=== PATIENT | female | born 1995 | race Caucasian/White ===

== ENCOUNTER 2023-12-31 14:08 | Outpatient (RCR) | payer BC, SELFPAY ==
[2024-01-02] MEDS: RHO(D) IMMUNE GLOBULIN 300 MCG/2 ML SYRINGE IM (17:50)
== END 2024-03-30 23:59 | disposition home or self-care (01) ==
LOC: ANHLAB 14:08
PROVIDERS: PCP Nurse Practitioner; Visit Provider Obstetrics & Gynecology
DX: Z29.13 Encounter for prophylactic Rho(D) immune globulin (principal)
CPT/HCPCS: 36415; 85461; 86850; 86900; 86901; 90384; 96372; J2790

== ENCOUNTER 2024-02-20 18:22 | Outpatient (CLI) | payer BC, SELFPAY ==
[2024-02-20 18:45] VITALS: BP 116/64; PULSE 77
[2024-02-20 18:46] VITALS: BP 113/57; PULSE 75; TEMP 36.3
--- NOTE | 2024-02-20 18:55 | PC.NURSE ---
Patient presents to OB unit with complaints of worsening swelling and a headache. Patient states she has had a headache all day and took tylenol this morning with no relief. Patient is rating her headache an 8/10. Patient also has RUQ pain rating it a 5/10 that is intermittent. Patient states she has high blood pressure with this and is on labetalol once a day. Patient is a EDC 03/24/24. Patient denies any other complications this . Patient denies vaginal bleeding or LOF. Patient has positive movement.
[2024-02-20 19:01] VITALS: BP 116/67; PULSE 85
[2024-02-20 19:02] LABS: Basophils Percent Auto 0.3 % (0.2-1.2); Eosinophils Absolute Auto 0.2 K/mm3 (0-0.3); Eosinophils Percent Auto 1.7 % (0-4.4); Hematocrit 32.8 % (37.0-47.0); Hemoglobin 11.3 g/dL (12.0-15.0); Immature Granulocyte Absolute 0.06 K/mm3 (0.00-0.031); Immature Granulocyte Percent A 0.6 % (0-0.5); Lymphocytes Absolute Auto 1.71 K/mm3 (0.9-3.2); Lymphocytes Percent Auto 16.9 % (18.3-44.2); Mean Corpuscular HGB Conc 34.5 g/dl (32-36); Mean Corpuscular Hemoglobin 30.1 pg (26-34); Mean Corpuscular Volume 87.5 fl (80-100); Mean Platelet Volume 9.5 fl (7.4-10.4); Monocytes Absolute Auto 0.7 K/mm3 (0.1-0.6); Monocytes Percent Auto 7.3 % (2.6-8.5); Neutrophils Absolute Auto 7.4 K/mm3 (1.3-6.7); Neutrophils Percent Auto 73.2 % (45.5-73.1); Platelet Count Result 214 k/mm3 (150-375); Red Blood Count 3.75 M/mm3 (4.2-5.4); Red Cell Distribution Width 12.6 % (11.5-14.5); White Blood Count 10.1 K/mm3 (4.5-10.0)
[2024-02-20 19:05] LABS: Add Urine Microscopic? NO; Appearance Urine Clear (Clear); Bilirubin Urine Negative (Negative); Blood Urine Negative (Negative); Color Urine Yellow (Yellow); Glucose Urine UA Negative (Negative); Ketones Urine Negative (Negative); Leukocyte Esterase Ur Negative LEU/UL (Negative); Nitrate Urine Negative (Negative); Protein Urine Negative (Negative); Specific Grav Ur 1.023 (1.001-1.035); Urobilinogen Urine 0.2 mg/dL (<2.0)
[2024-02-20 19:11] LABS: Creatinine Urine 136.4 mg/dL
[2024-02-20 19:14] LABS: Alanine Aminotransferase 26 U/L (6-35); Albumin Level 3.6 g/dL (3.5-5.1); Alkaline Phosphatase 107 U/L (38-126); Anion Gap 5 mmol/L (4-12); Aspartate Amino Transferase 37 U/L (14-36); Bilirubin,Total 0.4 mg/dL (0.2-1.3); Blood Urea Nitrogen 8 mg/dL (7-17); Calcium 8.9 mg/dL (8.4-10.2); Carbon Dioxide 22 mmol/L (22-30); Chloride 106 mmol/L (98-107); Estimated Glomerular Filt Rate > 60; Glucose 93 mg/dL (65-110); Potassium 3.7 mmol/L (3.4-5.0); Sodium 133 mmol/L (137-145); Uric Acid 4.4 mg/dL (2.5-7.5)
[2024-02-20 19:16] VITALS: BP 114/63; PULSE 83
[2024-02-20 19:21] VITALS: BP 116/64; PULSE 77
[2024-02-20 19:22] LABS: Total Protein Urine Random < 5 mg/dL; Ur Ttl Prot Creatinine Ratio 0.04 mg/mg (0-0.20)
[2024-02-20 19:46] VITALS: BMI 31.6
[2024-02-20] MEDS: ACETAMINOPHEN/BUTALBITAL/CAFFEINE 325-50-40 MG TABLET (FIORICET) 1 TAB PO (19:53)
== END 2024-02-20 21:00 | disposition home or self-care (01) ==
LOC: ANHOBOP 18:28 → ANHOBPP 21:03
PROVIDERS: PCP Nurse Practitioner; Visit Provider Obstetrics & Gynecology
DX: O13.9 Gestational [pregnancy-induced] hypertension without significant proteinuria, unspecified trimester (principal); Z3A.00 Weeks of gestation of pregnancy not specified
CPT/HCPCS: 36415; 59025; 80053; 81003; 82570; 84156; 84550; 85025; 99199; A9270

== ENCOUNTER 2024-03-10 22:45 | Observation (INO) | payer BC, SELFPAY ==
[2024-03-10 22:52] VITALS: BP 116/68; PULSE 95
[2024-03-10 23:00] VITALS: BP 114/61; PULSE 91
--- NOTE | 2024-03-10 23:05 | OBADM ---
This patient, Yenny Bryant, admitted to the OB room Labor/Delivery/Recovery 119 for observation. Pt states she had vaginal bleeding when she went to bathroom around 2130 tonight. it was bright red bleeding abount teaspoon full amount. denies contractions. feeling movement. pt states she went to bathroom now but didn't have any vaginal bleeding anymore. Patient/family oriented to hospital policies and general routines including ID bracelet, bed and alarms, visiting hours, pain management, procedures, bathroom and other care routines, personal items, smoking policy, room service/diet, and visiting hours. Patient/Family are encouraged to report perceived risks to care and to ask questions if they do not understand what they are told or what they should do.
[2024-03-10 23:30] VITALS: BP 111/57; PULSE 92
--- NOTE | 2024-03-13 08:46 | PM.OBTRLD ---
OB - Triage/Final Diagnosis Visit Information Reason for evaluation: threatened labor Comments/Additional reasons for admission: I have assessed the risk for this patient, Yenny Bryant, and determined that she would benefit from observation care.
== END 2024-03-10 23:55 | disposition home or self-care (01) ==
PROVIDERS: Admitting Provider Obstetrics & Gynecology; PCP Nurse Practitioner; Visit Provider Obstetrics & Gynecology
DX: O47.1 False labor at or after 37 completed weeks of gestation (principal); Z3A.38 38 weeks gestation of pregnancy
CPT/HCPCS: G0378; G0379

== ENCOUNTER 2024-03-18 04:41 | Inpatient (IN) | payer BC, SELFPAY ==
[2024-03-18] VITALS (42 sets, daily range): BP systolic 109–164; BP diastolic 47–85; PULSE 67–124; RESP 16–18; TEMP 36.2–37.1; O2SAT 96–97; BMI 33.0
[2024-03-18 05:24] LABS: Basophils Percent Auto 0.3 % (0.2-1.2); Eosinophils Absolute Auto 0.2 K/mm3 (0-0.3); Eosinophils Percent Auto 1.7 % (0-4.4); Hematocrit 32.8 % (37.0-47.0); Hemoglobin 11.1 g/dL (12.0-15.0); Immature Granulocyte Absolute 0.09 K/mm3 (0.00-0.031); Lymphocytes Absolute Auto 1.52 K/mm3 (0.9-3.2); Lymphocytes Percent Auto 16.7 % (18.3-44.2); Mean Corpuscular HGB Conc 33.8 g/dl (32-36); Mean Corpuscular Hemoglobin 29.1 pg (26-34); Mean Corpuscular Volume 85.9 fl (80-100); Mean Platelet Volume 9.6 fl (7.4-10.4); Monocytes Absolute Auto 0.5 K/mm3 (0.1-0.6); Monocytes Percent Auto 5.4 % (2.6-8.5); Neutrophils Absolute Auto 6.8 K/mm3 (1.3-6.7); Neutrophils Percent Auto 74.9 % (45.5-73.1); Platelet Count Result 186 k/mm3 (150-375); Red Blood Count 3.82 M/mm3 (4.2-5.4); Red Cell Distribution Width 12.7 % (11.5-14.5); White Blood Count 9.1 K/mm3 (4.5-10.0)
[2024-03-18] MEDS: OXYTOCIN 30 UNITS/NS 500 ML 30 UNITS/500 ML BAG IV CONT (05:25)
[2024-03-18] MEDS: LACTATED RINGERS 1,000 ML 125 ML IV CONT ×2 (05:26→13:11)
[2024-03-18] MEDS: BENZOCAINE 20% AER SPR (*SP) 56 GM CAN 1 SPRAY TOPICAL (05:50)
[2024-03-18 06:18] LABS: HIV 1/2 Ab P24 Ag Result Negative (Negative)
--- NOTE | 2024-03-18 07:48 | PM.IMHP ---
H&P: HPI History of Present Illness Date/Time: 03/18/24 07:48 Chief Complaint: Induction of labor at term Narrative: 28-year-old multiparous patient with 2 previous vaginal deliveries at term for induction of labor. Her has been uncomplicated Review of Systems Review of Systems: All systems reviewed & are unremarkable except as noted in HPI and below PMFSH Family History Family History Mother Diabetes mellitus Social History Social History Smoking status: Former smoker Tobacco type: e-cigarettes/vaping Second hand tobacco smoke exposure: No Substance use: never Do You Feel Safe in your Home?: Yes Lack of Transportation: No Lack of Food: Never True Current Housing: I Have Housing Concerned About Future Housing: No Difficulty Paying Gas/Electric Bills: No Difficulty Paying for Meds: No Currently Unemployed: No Education: High School Diploma/GED Difficulty w/ Childcare or Family Care: No Spiritual care concerns: No Meds Home Medications and Allergies Allergies Allergy/AdvReac Type Severity Reaction Status Date / Time yellow jackets Allergy Swelling Uncoded 01/02/24 17:49 Vital Signs Vital Signs - 24 hr 03/18/24 04:56 03/18/24 05:00 03/18/24 05:15 Temperature Pulse Rate 103 H 87 92 Blood Pressure 127/76 125/64 133/67 03/18/24 05:30 03/18/24 05:45 03/18/24 06:00 Temperature 97.4 F L Pulse Rate 93 82 94 Blood Pressure 127/76 120/69 109/47 L 03/18/24 06:15 03/18/24 06:46 03/18/24 07:01 Temperature Pulse Rate 83 89 88 Blood Pressure 119/61 134/78 134/74 03/18/24 07:16 03/18/24 07:17 03/18/24 07:31 Temperature 98.4 F Pulse Rate 87 84 Blood Pressure 138/78 129/79 03/18/24 07:46 Temperature Pulse Rate 78 Blood Pressure 121/70 Exam Const: General: cooperative, healthy appearing and comfortable Nutritional Appearance: average body habitus Orientation/consciousness: oriented to person, oriented to place and oriented to time HENMT: Head: normal to inspection Resp: Effort & Inspection: normal respiratory effort Cardio: Rate: regular rate Rhythm: regular rhythm Heart sounds: S1 normal heart sound present and S2 normal heart sound present GI: Inspection: normal to inspection (Soft gravid uterus) Auscultation: normal bowel sounds : External Female Exam: normal external appearance Speculum Exam - Vagina: normal appearance of the vagina Speculum Exam - Cervix: normal appearance of the cervix (Cervix 3/75/minus. AROM clear. FHTs reassuring) H&P: Results Labs Labs: Short CBC 03/18/24 Range/Units 05:03 WBC 9.1 (4.5-10.0) K/mm3 Hgb 11.1 L (12.0-15.0) g/dL Hct 32.8 L (37.0-47.0) % Plt Count 186 (150-375) k/mm3 Assessment and Plan Assessment and plan (1) Term : Code(s): Z34.90 - Encounter for supervision of normal , unspecified, unspecified trimester Status: Acute Plan Medical induction of labor.
[2024-03-18 07:49] LABS: Rapid Plasma Reagin Non-Reactive (NonReactive)
--- NOTE | 2024-03-18 12:11 | PM.OBPNLAB ---
Pain Control Date/time seen: 03/18/24 12:11 Pain control: tolerating well Pelvic Exam Dilation (cm): 4 Contractions Monitor mode: External
--- NOTE | 2024-03-18 16:06 | PM.OBPRVD ---
OB - Vaginal Delivery Note Procedure Delivery date: 03/18/24 Events: Elective Induction of Labor Induction method: AROM Delivery augmentation: Pitocin Delivery monitor: External FHT and External Uterine Route of delivery: Episiotomy description: None Laceration Description: None Specimen: No Anesthesia type: None Disposition: Floor Complications: No immediate complications Narrative: Was admitted for induction of labor 39 weeks gestation artificial rupture membranes performed she progressed in unremarkable 1st stage of is complete pushed the head spontaneously in the DELMY position anterior posterior shoulder spontaneously. Cord clamped x2 cut off the table given Apgars of 8 at minute 9 [id number]. Cord blood was. Placenta delivered to the toes and placed in the IV upward uterus. After inspecting all sidewalls no tears or lacerations were blood loss estimated at62cc. All sponge needle counts were correct Baby Date of : 03/18/24 Time of : 15:57 Gestational Age by Date: 39 Infant gender: Male presentation: vertex position: Right Occiput Anterior Placenta delivery description: Spontaneous Cord Vessel Description: 3 Vessels score one minute: 8 score five minutes: 9
--- NOTE | 2024-03-18 16:08 | P.DS_ITS ---
DS: Admitting Diagnosis Discharge Date 03/19/2024 Admitting Diagnosis Term DS: Discharge Diagnosis Discharge Diagnosis (1) Term : Code(s): Z34.90 - Encounter for supervision of normal , unspecified, unspecified trimester Status: Acute DS: Summary Hospital Course Reason for hospitalization: Patient was admitted for induction of labor on 03/18/2024 and which resulted in spontaneous vaginal delivery of a male infant. Hospital Course: The patient's hospital course was. She remained afebrile. She was up, difficulty, eating, ambulating complaints. Time Spent with Patient Time attestation: Total time spent providing and/or coordinating discharge services: Exam Const: General: cooperative, healthy appearing and comfortable Nutritional Appearance: average body habitus Orientation/consciousness: oriented to person, oriented to place and oriented to time HENMT: Head: normal to inspection Resp: Effort & Inspection: normal respiratory effort Cardio: Rate: regular rate Rhythm: regular rhythm Heart sounds: S1 normal heart sound present and S2 normal heart sound present GI: Inspection: normal to inspection (Fundus firm below umbilicus) DS: Data Data Completed and Pending Labs on day of discharge: Labs from last 24 hours 03/18/24 05:03 WBC 9.1 RBC 3.82 L Hgb 11.1 L Hct 32.8 L MCV 85.9 MCH 29.1 MCHC 33.8 RDW 12.7 Plt Count 186 MPV 9.6 Immature Gran % (Auto) 1.0 H Neut % (Auto) 74.9 H Lymph % (Auto) 16.7 L [place] % (Auto) 5.4 Eos % (Auto) 1.7 Baso % (Auto) 0.3 Lymph # (Auto) 1.52 [place] # (Auto) 0.5 Eos # (Auto) 0.2 Baso # (Auto) 0.0 Abs Immat Gran (auto) 0.09 H Absolute Neuts (auto) 6.8 H Absolute Nucleated RBC 0.000 Nucleated RBC % 0.0 RPR Non-reactive HIV 1&2 Ab/P24 Ag 4thGn Negative Blood Type A Negative Antibody Screen Positive Antibody Identification Passive Due to RH Imm Glob Antigen Identification Not Reportable HALI, IgG Interpret Neg HALI, Poly Interpret Not Performed HALI, Complement Interp Negative Discharge Plan Discharge Attending physician on discharge: Arvin Rosas Discharging Clinician: Dalla Mulberry,Arvin J. Patient Disposition: Home, Self-Care Activity: may shower, no straining, may drive after 2 weeks and pelvic rest Diet: heart healthy Patient Instructions: Antibiotic Form Patient Language: Bulgarian Stand Alone Forms: General Discharge Information Follow-up/Referrals: Arvin Rosas MD [Physician] - Date of admission: 03/18/24 04:41 Primary Care Provider: Tito,Joie Amaro Admitting Provider: Arvin Rosas Attending physician on admission: Arvin Rosas Condition: Stable
--- NOTE | 2024-03-18 18:30 | PC.NURSE ---
Patient transferred to post room # 286 via ( W/C ). Support person present. Oriented to unit, room, information board, rooming in, admission packet and security measures. Patient verbalizes understanding.
[2024-03-18] MEDS: IBUPROFEN 600 MG TABLET PO (19:54)
[2024-03-19 06:11] LABS: Hematocrit 33.6 % (37.0-47.0); Hemoglobin 10.9 g/dL (12.0-15.0)
--- NOTE | 2024-03-19 06:58 | P.PNOB_ITS ---
OB - PN: Subj Subjective Date/time seen: 03/19/24 06:58 Patient comments: no complaints, pain well controlled and tolerating diet OB - PN: Obj Data Labs 03/19/24 05:55 Labs: Laboratory Results - last 24 hr 03/18/24 03/19/24 05:03 05:55 Hgb 10.9 L Hct 33.6 L RPR Non-reactive Blood Type A Negative Antibody Identification Passive Due to RH Imm Glob Antigen Identification Not Reportable HALI, Complement Interp Negative OB - PN A/P Assessment and Plan (1) Term : Code(s): Z34.90 - Encounter for supervision of normal , unspecified, unspecified trimester Status: Acute Plan home today Time Spent With Patient Time: Total time spent is greater than 50% in coordination of care (as documented) at patient's floor/unit and/or counseling patient: Review of Systems 2 Review of Systems: All systems reviewed & are unremarkable except as noted in HPI and below Exam 2 Const: General: cooperative, healthy appearing and comfortable Nutritional Appearance: average body habitus Orientation/consciousness: oriented to person, oriented to place and oriented to time HENMT: Head: normal to inspection Resp: Effort & Inspection: normal respiratory effort Cardio: Rate: regular rate Rhythm: regular rhythm Heart sounds: S1 normal heart sound present and S2 normal heart sound present GI: Inspection: normal to inspection
[2024-03-19] MEDS: IBUPROFEN 600 MG TABLET PO (07:16)
[2024-03-19 08:00] VITALS: BP 121/64; PULSE 64; RESP 18; TEMP 36.7; O2SAT 100
--- NOTE | 2024-03-19 08:31 | PC.NURSE ---
Introductions were made, then consulted with patient to assess needs related to . Mother led the conversation with her?plans to feed?her infant and the?experience so far. Mother exclusively breast fed her other two children and declines any education at this time. admission folder given and reviewed with patient. Mother to call with next feeding so this RN can observe appropriate latch. Mother states she is able to independently latch with appropriate positioning and alignment. She denies any nipple discomfort and is responsively . Infant is currently meeting outcomes for weight, output, jaundice, blood sugar and feeding frequencies of 8-12 times in 24 hours. Mother declines any additional assistance or education at this time. Mother is encouraged to call for assistance if her doesn?t latch, pain with latching, questions or concerns. Mother voiced understanding of information shared along with the mom/baby guide for an additional resource. Reported to the Primary RN.
[2024-03-19] MEDS: MULTIVIT/MIN/PREN/FOL AC/IRON TABLET 1 TAB PO (09:39)
[2024-03-19] MEDS: DOCUSATE SODIUM 100 MG CAPSULE PO (09:39)
[2024-03-19] MEDS: ACETAMINOPHEN 325 MG TABLET 650 MG PO (09:40)
[2024-03-19 12:00] VITALS: BP 118/71; PULSE 77; RESP 18; TEMP 36.4; O2SAT 100
[2024-03-19 16:00] VITALS: BP 119/65
--- NOTE | 2024-03-19 16:49 | PC.NURSE ---
This RN called to bedside to check latch. Mother was able to latch independently in the cross cradle position on the left breast. Swallows were noted.
[2024-03-19] MEDS: RHO(D) IMMUNE GLOBULIN 300 MCG/2 ML SYRINGE IM (17:46)
--- OUTSIDE RECORDS SUMMARY | 2024-03-24 11:41 | XMS_ITS | Continuity of Care Document ---
Author Organization [facility] Address [address] [place] [address] Care Team Providers Care [employer] Name Role Phone Francis, Joie Amaro [employer] Primary Care Provider + Arvin Rosas MD Attending Provider [phone] Arvin Rosas MD Admit Provider Care Teams Patient Care Team Team Status: Active Member Role Status Dates Joie Francis , [employer] Primary Care Provider Active Visit Care Team Team Status: Active Member Role Status Dates Joie Francis , [employer] Primary Care Provider Active Start: December 31, 2023 Arvin Vasquez MD Attending Provider Active Start: December 31, 2023 Visit Care Team Team Status: Inactive Member Role Status Dates Joie Francis , [employer] Primary Care Provider Active Start: February 20, 2024 End: February 20, 2024 Arvin Vasquez MD Attending Provider Active Start: February 20, 2024 End: February 20, 2024 Patient Care Team Team Status: Inactive Member Role Status Dates Joie Francis , [employer] Primary Care Provider Active Start: March 10, 2024 End: March 10, 2024 Arvin Vasquez MD Admit Provider, Attending Provider Active Start: March 10, 2024 End: March 10, 2024 Chief Complaint and Reason for Visit Chief Complaint Admit Date rhoegam December 31, 2023 2 :08pm Swelling, Headache February 20, 2024 6:22pm Vaginal Bleeding March 10, 2024 10:45pm Allergies, Adverse Reactions, Alerts Allergen Type Severity Reaction Last Updated Verified Status yellow jackets Allergy Unknown Swelling January 02, 2024 4:49p m No Active Social History Smoking Status Unknown if ever smoked Observation Status Observation Response Date of Response Patient Sex Female March 11 024 12:13am Assigned Sex Female September 26 Relevant Diagnostic Tests and/or Laboratory Data Laboratory Results Test Date/Time Result Interpretation Reference Range Result Comment Performing Site White Blood Count February 20, 2024 6:39pm 10.1 K/mm3 Above high normal 4.5-10.0 [facility] [id number] [address] [address] Red Blood Count February 20, 2024 6:39pm 3.75 M/mm3 Below low normal 4.2-5.4 [facility] [id number] [address] [address] Hemoglobin February 20, 2024 6:39pm 11.3 g/dL Below low normal 12.0-15.0 [facility] [id number] [address] [address] Hematocrit February 20, 2024 6:39pm 32.8 % Below low normal 37.0-47.0 [facility] [id number] [address] [address] Mean Corpuscular Volume February 20, 2024 6:39pm 87.5 fL 80-100 [facility] [id number] [address] [address] Mean Corpuscular Hemoglobin February 20, 2024 6:39pm 30.1 pg 26-34 [facility] [id number] [facility] [address] [address] Mean Corpuscular Hemoglobin Concent February 20, 2024 6:39pm 34.5 g/dL 32-36 [facility] [id number] [facility] [address] [address] Red Cell Distribution Width February 20, 2024 6:39pm 12.6 % 11.5-14.5 [facility] [id number] [address] [address] Platelet Count February 20, 2024 6:39pm 214 k/mm3 150-375 [facility] [id number] [address] [address] Mean Platelet Volume February 20, 2024 6:39pm 9.5 fL 7.4-10.4 [facility] [id number] [facility] [address] [address] Nucleated Red Blood Cells % February 20, 2024 6:39pm 0.0 % 0.0-0.2 [facility] [id number] [address] [place] [address] Immature Granulocyte % (Auto) February 20, 2024 6:39pm 0.6 % Above high normal 0-0.5 [facility] [id number] [address] [place] [address] Neutrophils (%) (Auto) February 20, 2024 6:39pm 73.2 % Above high normal 45.5-73.1 [facility] [id number] [address] [place] [address] Lymphocytes (%) (Auto) February 20, 2024 6:39pm 16.9 % Below low normal 18.3-44.2 [facility] [id number] [address] [place] [address] Monocytes (%) (Auto) February 20, 2024 6:39pm 7.3 % 2.6-8.5 [facility] [id number] [address] [place] [address] Eosinophils (%) (Auto) February 20, 2024 6:39pm 1.7 % 0-4.4 [facility] [id number] [address] [place] [address] Basophils (%) (Auto) February 20, 2024 6:39pm 0.3 % 0.2-1.2 [facility] [id number] [address] [place] [address] Nucleated RBC Absolute Count (auto) February 20, 2024 6:39pm 0.000 K/mm3 0.0-0.012 [facility] [id number] [address] [place] [address] Absolute Immature Granulocyte (auto February 20, 2024 6:39pm 0.06 K/mm3 Above high normal 0.00-0.031 [facility] [id number] [address] [place] [address] Absolute Neutrophils (auto) February 20, 2024 6:39pm 7.4 K/mm3 Above high normal 1.3-6.7 [facility] [id number] [address] [place] [address] Lymphocytes # (Auto) February 20, 2024 6:39pm 1.71 K/mm3 0.9-3.2 [facility] [id number] [address] [address] Monocytes # (Auto) February 20, 2024 6:39pm 0.7 K/mm3 Above high normal 0.1-0.6 [facility] [id number] [address] [address] Eosinophils # (Auto) February 20, 2024 6:39pm 0.2 K/mm3 0-0.3 [facility] [id number] [facility] [address] [address] Basophils # (Auto) February 20, 2024 6:39pm 0.0 K/mm3 0.0-0.1 [facility] [id number] [facility] [address] [address] Urine Color February 20, 2024 6:39pm Yellow Yellow [facility] [id number] [facility] [address] [address] Urine Appearance February 20, 2024 6:39pm Clear Clear [facility] [id number] [facility] [address] [address] Urine pH February 20, 2024 6:39pm 6.0 5.0-9.0 [facility] [id number] [facility] [address] [address] Urine Specific [place] February 20, 2024 6:39pm 1.023 1.001-1.03 5 [facility] [id number] [facility] [address] [address] Urine Protein February 20, 2024 6:39pm Negative mg/dL Negative [facility] [id number] [facility] [address] [address] Urine Glucose (UA) February 20, 2024 6:39pm Negative mg/dL Negative [facility] [id number] [facility] [address] [address] Urine Ketones February 20, 2024 6:39pm Negative mg/dL Negative [facility] [id number] [facility] [address] [address] Urine Blood (Manual) February 20, 2024 6:39pm Negative Negative [facility] [id number] [facility] [address] [address] Urine Nitrate February 20, 2024 6:39pm Negative Negative [facility] [id number] [facility] [address] [address] Urine Bilirubin February 20, 2024 6:39pm Negative Negative [facility] [id number] [address] [place] [address] Urine Urobilinogen February 20, 2024 6:39pm 0.2 mg/dL <2.0 [facility] [id number] [address] [place] [address] Urine Leukocyte Esterase (Reflex) February 20, 2024 6:39pm Negative MELANIE/UL Negative [facility] [id number] [address] [place] [address] Urine Random Total Protein February 20, 2024 6:39pm < 5 mg/dL The reference range and other method performancespec ifications have not been established for this test. Thetest result should be integrated into the clinical context for interpretation. [facility] [id number] [address] [place] [address] Urine Creatinine February 20, 2024 6:39pm 136.4 mg/dL [facility] [id number] [address] [place], [place] [address] Urine Protein/Creat inine Ratio 2 February 20, 2024 6:39pm 0.04 mg/mg 0-0.20 [facility] [id number] [address] [place] [address] Sodium Level February 20, 2024 6:39pm 133 mmol/L Below low normal 137-145 [facility] [id number] [address] [place] [address] Potassium Level February 20, 2024 6:39pm 3.7 mmol/L 3.4-5.0 [facility] [id number] [address] [place] [address] Chloride Level February 20, 2024 6:39pm 106 mmol/L 98-107 [facility] [id number] [address] [place] [address] Carbon Dioxide Level February 20, 2024 6:39pm 22 mmol/L 22-30 [facility] [id number] [address] [place] [address] Anion Gap February 20, 2024 6:39pm 5 mmol/L 4-12 [facility] [id number] [address] [place] [address] Blood Urea Nitrogen February 20, 2024 6:39pm 8 mg/dL 7-17 [facility] [id number] [address] [place] [address] Creatinine February 20, 2024 6:39pm 0.60 mg/dL Below low normal 0.7-1.0 [facility] [id number] [address] [place] [address] Estimat Glomerular Filtration Rate February 20, 2024 6:39pm > 60 >59 > OR = 60 ml/min/1.73 square metersThe MDRD formula used to calculate the eGFR result has not been validated in patients > 70 years of age. [facility] [id number] [address] [place] [address] Estimated Creatinine Clearance Calc February 20, 2024 6:39pm Not Reportable [facility] [id number] [address] [place] [address] Glucose Level February 20, 2024 6:39pm 93 mg/dL 65-110 [facility] [id number] [address] [place] [address] Uric Acid February 20, 2024 6:39pm 4.4 mg/dL 2.5-7.5 [facility] [id number] [address] [place] [address] Calcium Level February 20, 2024 6:39pm 8.9 mg/dL 8.4-10.2 [facility] [id number] [address] [place] [address] Total Bilirubin February 20, 2024 6:39pm 0.4 mg/dL 0.2-1.3 [facility] [id number] [address] [place] [address] Aspartate Amino Transf (AST/SGOT) February 20, 2024 6:39pm 37 U/L Above high normal 14-36 [facility] [id number] [address] [place] [address] Alanine Aminotransfer ase (ALT/SGPT) February 20, 2024 6:39pm 26 U/L 6-35 [facility] [id number] [address] [place] [address] Total Protein February 20, 2024 6:39pm 7.0 g/dL 6.3-8.2 [facility] [id number] [address] [place] [address] Albumin February 20, 2024 6:39pm 3.6 g/dL 3.5-5.1 [facility] [id number] [facility] [address] [place] [address] Alkaline Phosphatase February 20, 2024 6:39pm 107 U/L 38-126 [facility] [id number] [address] [address] Vital Signs Vital Reading Result Reference Range Collection Date/Time Height 70 [in_i] February 20, 2024 7:46pm Weight 100.00 kg February 20, 2024 7:46pm Body Temperature 97.3 [degF] 97.6-99.6 February 192023 6:46pm Heart Rate 77 /min 60-100 February 20, 2024 7:21pm BP Systolic 116 mm[Hg] 100-140 February 20, 2024 7:21pm BP Diastolic 64 mm[Hg] 60-90 February 20, 2024 7:21pm BMI (Body Mass Index) 31.6 kg/m2 [facility] er 2023 7:46pm Heart Rate 92 /min 60-100 March 10, 2024 11:30pm BP Systolic 111 mm[Hg] 100-140 March 10, 2024 11:30pm BP Diastolic 57 mm[Hg] 60-90 March 10, 2024 11:30pm Advance Directives Advance Directive Response Recorded Date/ Time Current Advance Directive No [facility] 2023 11:05pm Insurance Providers Guarantor Yenny Bryant Address [address] [place] [address] Contact Info. Home Phone: [phone] Payer Policy Id Coverage Id Subscriber's Name Subscriber Id Effective Date Expiration Date [facility] [id number] Yenny Bryant [id number] Encounters Encounter Location(s) Arrival/Admit Date Discharge/Depart Date Provider(s) Registered Recurring [facility] December 31, 2023 1:08pm Arvin Vasquez MD Departed Clinical [facility] OB Outpatient February 20, 2024 6:22pm February 20, 2024 9:00pm Arvin Vasquez MD Discharged Inpatient [facility] Labor/Delivery/R ecovery March 10, 2024 10:45pm March 10, 2024 11:55pm Arvin Vasquez MD Plan of Treatment Future Tests Future scheduled test information is unavailable Pending Tests Pending diagnostic test information is unavailable Future Visits Future appointment information is unavailable Referrals to Other Providers Reason for Referral Referral Start Date Provider Provider Contact Information Provider Address Arvin Vasquez MD Email: [email or web address] Phone: [phone] [place] [address] Future Procedures Procedure Name Ordered Date Scheduled Date Outpatient Procedure/ Extend ed Recovery February 20, 2024 6:30pm February 20, 2024 6:30pm Discharge Order March 10, 2024 11:43pm Dece mber 2023 11:43pm Placement to Observation March 10, 2024 11: 01pm March 10, 2024 11:01pm Future Medications Future medication information is unavailable Patient Instructions Patient instructions are unavailable Progress Note Author Arvin Vasquez [facility] Note Date/Time March 13, 2024 8: 46am [facility] [address] [address] [employer]ED [employer]EN [employer] Progress Note Signed Patient: Yenny Bryant MR#: [id number] : 1995 Acct:[id number] Age: 28 ADM Date: 03/10/24 Loc: ANHLDR 119-[address]: Arvin Vasquez M.D. cc: ~ OB - Triage/Final Diagnosis Visit Information Reason for evaluation: threatened labor Comments/Additional reasons for admission: I have assessed the risk for this patient, Yenny Bryant, and determined that she would benefit from observation care. Please be advised this is a medical document. It is intended for xshg-iv-vyna communication. It is written in medical language and may contain unfamiliar abbreviations or verbiage. Medical documents are intended to carry relevant information, facts as evident, and the clinical opinion of the practitioner at the time of the encounter. This report may have been done utilizing a voice recognition system. Attempts have been made to correct errors. However, there may be uncorrected grammatical,spelling, and recognition errors present. The file time of this note does not necessarily represent the time the patient was seen. Report Initialized date/time: Arvin Rosas MD 03/13/2447 Electronically signed by: Arvin Rosas MD 03/13/24 0846
== END 2024-03-19 20:32 | disposition home or self-care (01) | DRG 807 ==
LOC: ANHLDR 16:10 → ANHOB2 18:35
PROVIDERS: Admitting Provider Obstetrics & Gynecology; PCP Nurse Practitioner; Visit Provider Obstetrics & Gynecology
DX: O13.4 Gestational [pregnancy-induced] hypertension without significant proteinuria, complicating childbirth (principal); Z37.0 Single live birth; Z3A.39 39 weeks gestation of pregnancy
CPT/HCPCS: 36415; 85014; 85018; 85025; 85461; 86592; 86703; 86850; 86880; 86900; 86901; 86902; 90384; A9270; G0432; J2590; J2790; J7120